=== PATIENT | male | born 1955 | race Caucasian/White ===

== ENCOUNTER 2017-04-30 09:30 | Emergency (ER) | payer OTHER ==
[2017-04-30 09:41] VITALS: BP 131/97; PULSE 61; TEMP 98.9; BMI 33.6
[2017-04-30] MEDS: DIPHTH,PERTUSS(ACELL),TET 0.5 ML DISP.SYRIN IM ONE ×2 (10:03→10:12)
[2017-04-30] MEDS ORDERED: DIPHTH,PERTUSS(ACELL),TET 0.5 ML DISP.SYRIN IM ONE (10:07)
--- NOTE | 2017-04-30 10:08 | PDOC ---
History of Present Illness - General Chief Complaint: Laceration Stated Complaint: cut my hand Time Seen by Provider: 04/30/17 10:05 - History of Present Illness Initial Comments: 04/30/17 10:08 Chief complaint: Laceration History of present illness: Patient dropped a picture frame on his right thumb, sustaining a laceration. There was no broken glass. There was no other loose material that could've yielded a foreign body. Review of systems: Denies distal numbness tingling or pain. Denies limited motion. Sustaining an abrasion on the other thumb as well. Past medical history: Elevated cholesterol, hypertension Medications: As indicated Social/family history reviewed and noncontributory. Last tetanus was greater than 10 years ago Physical exam: Alert and oriented well-developed well-nourished no acute distress cheerful and cooperative Afebrile, vital signs stable Left thumb reveals a superficial abrasion over the dorsum of the thumb, IP joint. Full range of motion against resistance. No distal numbness tingling or pain. Capillary refill intact Right thumb reveals a superficial laceration over the dorsum of the proximal phalanx. Full range of motion and strength against resistance. No distal numbness of the digital nerves with light touch or pinprick. Good capillary refill. Impression: Superficial laceration Plan: Further examination and repair Past History - Past Medical History Allergies/Adverse Reactions: Allergies Allergy/AdvReac Type Severity Reaction Status Date / Time No Known Allergies Allergy Verified 11/04/15 14:59 Home Medications: Ambulatory Orders Aspirin Coated [Ecotrin -] 81 mg PO DAILY tablet.ec 11/06/15 Atorvastatin Ca [Lipitor] 20 mg PO HS #30 tablet 11/06/15 Nebivolol [Bystolic -] 2.5 mg PO DAILY #30 tab 11/06/15 COPD: No HTN: Yes Hypercholesterolemia: Yes - Suicide/Smoking/Psychosocial Hx Smoking History: Never smoked Cigars Per Day: 1 Hx Alcohol Use: No Drug/Substance Use Hx: No Substance Use Type: Alcohol *Physical Exam - Vital Signs Last Vital Signs Temp Pulse Resp BP Pulse Ox 98.9 F 61 18 131/97 97 04/30/17 09:30 04/30/17 09:30 04/30/17 09:30 04/30/17 09:30 04/30/17 09:30 ED Treatment Course - Medications Given in the ED: ED Medications Discontinued Medications Generic Name Dose Route Start Last Admin Trade Name Hosea PRN Reason Stop Dose Admin Diphtheria/Tetanus/Acell Pertussis 0.5 ml 04/30/17 10:03 04/30/17 10:03 Boostrix - IM 04/30/17 10:04 0.5 ml NOW ONE Administration Medical Decision Making - Medical Decision Making 04/30/17 10:12 Procedure note: Repair of laceration Wound was thoroughly scrubbed with normal saline and explored. It was superficial, involving only the epidermis. There was no deep tissue exposed and there were no punctures. There was no foreign body visualized or palpated. Bacitracin and Steri-Strips were applied with good edge approximation. Tube gauze was used for protection and partial immobilization. Wound care instructions, Boostrix, were given. Advised to maintain dressing for 3 days, return if there is any sign of infection or bleeding, otherwise continue to keep dressed and covered for 7-10 days. Fully ambulatory and in no pain or other distress upon discharge to follow-up as directed *DC/Admit/Observation/Transfer Diagnosis at time of Disposition: Laceration of finger Qualifiers: Encounter type: initial encounter Finger: thumb Damage to nail status: without damage Foreign body presence: without foreign body Laterality: right Qualified Code(s): S61.011A - Laceration without foreign body of right thumb without damage to nail, initial encounter - Discharge Dispostion Disposition: HOME Condition at time of disposition: Improved Admit: No - Referrals Referrals: Latricia Adkins MD [Primary Care Provider] - - Patient Instructions Printed Discharge Instructions: DI for Laceration Repair Steri-Strips Additional Instructions: Keep clean and absolutely dry. Leave bandage in place for 3 days. Then remove, inspect the cut. If there is no sign of infection, continue to dress with antibiotic ointment and a Band-Aid. If there is sign of infection, return to the emergency room. - Post Discharge Activity
== END 2017-04-30 10:12 | disposition home or self-care (01) ==
LOC: FER 09:30
PROC: 3E0234Z Introduction of Serum, Toxoid and Vaccine into Muscle, Percutaneous Approach (ICD-10-PCS; principal; 2017-04-30)
DX: S61.011A Laceration without foreign body of right thumb without damage to nail, initial encounter (principal); I10 Essential (primary) hypertension; E78.00 Pure hypercholesterolemia, unspecified; W20.8XXA Other cause of strike by thrown, projected or falling object, initial encounter; Y93.89 Activity, other specified; Y92.9 Unspecified place or not applicable
CPT/HCPCS: 90715; 99282-25

== ENCOUNTER 2018-07-04 07:33 | Day surgery (SDC) | payer OTHER ==
[2018-07-01 11:03] VITALS: BMI 36.1
[2018-07-04 10:53] VITALS: BP 129/76; PULSE 72; TEMP 97
--- NOTE | 2018-07-05 14:55 | PATH ---
Surgical Pathology Report Patient Name: MICHAEL BUSCH [facility]. Rec. #: [id number] /Age/Gender: 1955 (Age: 63) / M Account: [id number] Location: [facility]ENDOSCOPY Taken: 07/04/2018 Received: 07/04/2018 Reported: 07/05/2018 Physicians: Moise Lehman M.D. Specimen(s) Received A: 2ND PORTION DUODENUM AND BULB BIOPSY B: 2ND PORTION DUODENUM POLYP BIOPSY C: ANTRUM AND BODY BIOPSY D: PROXIMAL TRANSVERSE COLON POLYP BIOPSY Clinical History Abdominal pain, abnormal CT scan, family history of colon cancer, screening colonoscopy Postoperative diagnosis: Duodenal polyp, colon polyp, diverticulosis Final Diagnosis A. SECOND PORTION DUODENUM AND BULB, BIOPSY: DUODENAL MUCOSA WITH MILD CHRONIC DUODENITIS. B.SECOND PORTION DUODENUM, POLYP, BIOPSY: POLYPOID DUODENAL MUCOSA WITH MODERATE CHRONIC DUODENITIS AND CARSON'S GLAND HYPERPLASIA. C. BODY AND ANTRUM, BIOPSY: GASTRIC ANTRAL AND BODY MUCOSA WITH MILD CHRONIC GASTRITIS. IMMUNOHISTOCHEMICAL STAIN FOR H. PYLORI IS NEGATIVE. D. PROXIMAL TRANSVERSE COLON, POLYP, BIOPSY: TUBULAR ADENOMA. Electronically Signed Jennifer Muller M.D. Gross Description A. Received in formalin, labeled "second portion of duodenum and bulb biopsy" are 4 crockett, irregular portions of soft tissue ranging from 0.2-0.4 cm. in greatest dimension. The specimens are submitted in toto in one cassette. B. Received in formalin, labeled "second portion of duodenal polyp biopsy" are 2 crockett, irregular portions of soft tissue measuring 0.4 and 0.5 cm. in greatest dimension. The specimens are submitted in toto in one cassette. C. Received in formalin, labeled "body and antrum" are 2 crockett, irregular portions of soft tissue averaging 0.3 cm. in greatest dimension. The specimens are submitted in toto in one cassette. D. Received in formalin, labeled "proximal transverse colon polyp" are 2 crockett, irregular portions of soft tissue measuring 0.3 and 0.5 cm. in greatest dimension. The specimens are submitted in toto in one cassette. /07/04/2018 saudi07/04/2018
== END 2018-07-04 10:54 | disposition home or self-care (01) ==
LOC: JASU-ENDO 07:33
PROVIDERS: ATTEND Internal Medicine Gastroenterology
PROC: 0DB98ZX Excision of Duodenum, Via Natural or Artificial Opening Endoscopic, Diagnostic (ICD-10-PCS; 2018-07-04)
PROC: 0DB68ZX Excision of Stomach, Via Natural or Artificial Opening Endoscopic, Diagnostic (ICD-10-PCS; 2018-07-04)
PROC: 0DBL8ZX Excision of Transverse Colon, Via Natural or Artificial Opening Endoscopic, Diagnostic (ICD-10-PCS; principal; 2018-07-04 08:30)
DX: Z12.11 Encounter for screening for malignant neoplasm of colon (principal); Z80.0 Family history of malignant neoplasm of digestive organs; D12.3 Benign neoplasm of transverse colon; K64.8 Other hemorrhoids; K57.30 Diverticulosis of large intestine without perforation or abscess without bleeding; K31.7 Polyp of stomach and duodenum
CPT/HCPCS: 88305-TC; 88342-TC

== ENCOUNTER 2019-07-04 18:11 | Emergency (ER) | payer OTHER, MEDICARE ==
--- NOTE | 2019-07-04 18:26 | PDOC ---
History of Present Illness - General Stated Complaint: CYST ON BACK Time Seen by Provider: 07/04/19 18:15 - History of Present Illness Initial Comments: 07/04/19 18:39 Mr. Weston is a 64 yo male w/ pmh of HLD, afib, on brilinta who presents for evaluation of reported "cyst" on back. Patient reports he believes he previously had a small cyst in the center of his upper back, however starting around Wednesday last week it became blackened and painful. Patient reports it "popped" today with a significant amount of blood and material noted. Patient presented to residential direct support professional who recommended he proceed to ER for further care. Patient denies any systemic symptoms at this time and reports pain has improved following cyst popping. The patient denies chest pain, shortness of breath, headache and dizziness. Denies fever, chills, nausea, vomit, diarrhea and constipation. Denies dysuria, frequency, urgency and hematuria. Past History - Past Medical History Allergies/Adverse Reactions: Allergies Allergy/AdvReac Type Severity Reaction Status Date / Time No Known Allergies Allergy Verified 07/04/19 18:31 Home Medications: Ambulatory Orders Aspirin Coated [Ecotrin -] 81 mg PO DAILY tablet.ec 11/06/15 Atorvastatin Ca [Lipitor] 20 mg PO HS #30 tablet 11/06/15 Nebivolol [Bystolic -] 2.5 mg PO DAILY #30 tab 11/06/15 Ascorbic Acid [Vitamin C] 1,000 mg PO DAILY 07/04/18 Cancer: Yes (MELANOMA) Cardiac Disorders: (CARDIAC CATH 2016-NORMAL) COPD: No HTN: Yes Hypercholesterolemia: Yes - Psycho Social/Smoking Cessation Hx Smoking History: Never smoked Cigars Per Day: 1 Hx Alcohol Use: Yes (OCCASIONAL) Drug/Substance Use Hx: No Substance Use Type: Alcohol Hx Substance Use Treatment: No Review of Systems - Review of Systems Comments:: 07/04/19 18:42 GENERAL/CONSTITUTIONAL: No fever or chills. No weakness. HEAD, EYES, EARS, NOSE AND THROAT: No change in vision. No ear pain or discharge. No sore throat. CARDIOVASCULAR: No chest pain or shortness of breath RESPIRATORY: No cough, wheezing, or hemoptysis. GASTROINTESTINAL: No nausea, vomiting, diarrhea or constipation. GENITOURINARY: No dysuria, frequency, or change in urination. MUSCULOSKELETAL: +Back symptoms/pain as described. No joint or muscle swelling or pain. SKIN: No rash NEUROLOGIC: No headache, vertigo, loss of consciousness, or change in strength/ sensation. ENDOCRINE: No increased thirst. No abnormal weight change HEMATOLOGIC/LYMPHATIC: No anemia, easy bleeding, or history of blood clots. ALLERGIC/IMMUNOLOGIC: No hives or skin allergy. *Physical Exam - Physical Exam 07/04/19 18:42 GENERAL: Awake, alert, and fully oriented, in no acute distress HEAD: No signs of trauma, normocephalic, atraumatic EYES: PERRLA, EOMI, sclera anicteric, conjunctiva clear ENT: Auricles normal inspection, hearing grossly normal, nares patent, oropharynx clear without exudates. Moist mucosa NECK: Normal ROM, supple, no lymphadenopathy, JVD, or masses LUNGS: No distress, speaks full sentences, clear to auscultation bilaterally HEART: Regular rate and rhythm, normal S1 and S2, no murmurs, rubs or gallops, peripheral pulses normal and equal bilaterally. ABDOMEN: Soft, nontender, normoactive bowel sounds. No guarding, no rebound. No masses EXTREMITIES: +5cm x 4 cm area noted to mid upper back c/w infected dermoid cyst. Otherwise normal inspection, normal range of motion, no edema. No clubbing or cyanosis. NEUROLOGICAL: Cranial nerves II through XII grossly intact. Normal speech, normal gait, no focal sensorimotor deficits SKIN: Warm, Dry, normal turgor, no rashes or lesions noted. Medical Decision Making - Medical Decision Making 07/04/19 18:43 Mr. Weston is a 64 yo male w/ pmh as described who presents for evaluation of symptoms as described c/w infected cyst. US evaluation revealed 0.5cm to 1.5cm depth area of edema w/out discrete drainable collection. Patient denies pain medication at this time. Patient has arranged plastics evaluation who will evaluate; will defer to expertise however suspect ABX treatment only warranted intervention at this time. 07/04/19 18:50 Patient signed out to Dr. Whelan for further evaluation. Discharge - Discharge Information Problems reviewed: Yes Clinical Impression/Diagnosis: Infected epidermoid cyst - Follow up/Referral Referrals: Latricia Adkins MD [Primary Care Provider] - - Patient Discharge Instructions Patient Printed Discharge Instructions: DI for Wound Infection - Post Discharge Activity
[2019-07-04 18:28] VITALS: BP 117/77; PULSE 72; TEMP 98.1; BMI 33.9
--- NOTE | 2019-07-04 18:49 | PDOC ---
Documentation entered by Xiomara Patel SCRIBE, acting as scribe for Lexi Whelan MD. Lexi Whelan MD: This documentation has been prepared by the jordanaibmary, Xiomara Patel SCRIBE, under my direction and personally reviewed by me in its entirety. I confirm that the documentation accurately reflects all work, treatment, procedures, and medical decision making performed by me. Attending Attestation - Resident Resident Name: LloydvandaHank - ED Attending Attestation I have performed the following: I have examined & evaluated the patient, The case was reviewed & discussed with the resident, I agree w/resident's findings & plan, Exceptions are as noted - HPI HPI: 07/04/19 18:54 64-year-old male presents with an abscess on his upper back that he states has been draining 07/04/19 18:57 The patient is a 64-year-old male with a past medical history significant for HLD and Afib (on brilinta) who presents to the emergency department with a cyst on back. The patient reports he noted a cyst on his back, which darkened in color on Wednesday and became painful. The patient reports earlier today, the wound popped and started draining. The patient reports following up with Patient Centered Care Specialist, who referred the patient to the ER for further management. Denies fever or chills. - Physicial Exam PE: 07/04/19 18:48 There is a 5 cm x 4 cm mid upper back infected cyst that has been draining neuro pt axox3,ambulatory - Medical Decision Making 07/04/19 18:56 The patient states that he has already contacted the plastic surgeon Dr. Bang Aocsta and the plan is that the plastic surgeon will meet him in the emergency department 07/04/19 18:[address] Abhi Whaley. 07/04/19 20:42 Dr Abhi Whaley came in and did an incision and drainage bedside RX keflex and Iodoform gauze pt started on keflex as per Dr Whaley recommendation and he was discharged home he will follow up with Dr Whaley
[2019-07-04] MEDS ORDERED: LIDOCAINE HCL 2% (20ML MULTI-DOSE VIAL) ONE (19:30)
[2019-07-04] MEDS ORDERED: CEPHALEXIN MONOHYDRATE 500 MG CAPSULE (UD) PO STA (19:56)
--- NOTE | 2019-07-04 19:59 | PDOC ---
*Physical Exam - Vital Signs Last Vital Signs Temp Pulse Resp BP Pulse Ox 98.1 F 72 12 117/77 97 07/04/19 18:25 07/04/19 18:25 07/04/19 18:25 07/04/19 18:25 07/04/19 18:25 Discharge - Discharge Information Problems reviewed: Yes Clinical Impression/Diagnosis: Infected epidermoid cyst Condition: Stable Disposition: HOME - Admission No - Additional Discharge Information Prescriptions: Cephalexin Monohydrate [Keflex -] 500 mg PO Q8H #21 capsule Iodoform [Curity Iodoform] 1 each TP BID #14 bandage - Follow up/Referral Referrals: Latricia Adkins MD [Primary Care Provider] - Abhi Whaley MD [Staff Physician] - - Patient Discharge Instructions Patient Printed Discharge Instructions: DI for Wound Infection Additional Instructions: please followup with Dr Whaley Please take your antibiotics as prescribed Change the packing twice daily - Post Discharge Activity
[2019-07-04] MEDS ORDERED: CEPHALEXIN MONOHYDRATE 500 MG CAPSULE (UD) ONE (20:03)
--- NOTE | 2019-07-05 20:50 | CONS ---
OPERATIVE AND CONSULTATION REPORT DATE OF CONSULTATION: DATE OF DICTATION: 07/04/2019 DATE OF OPERATION: 07/04/2019 PROCEDURE: Incision and drainage of back cutaneous abscess. ATTENDING SURGEON: Jose Carlos Vega MD [facility] HISTORY PROFESSOR: There were no assistants. Patient is seen at the request of referring physician, Dr. Whelan. Please see report by Dr. Whelan. History is that this is a 64-year-old male who developed a large, fluctuant, erythematous, tender, hot abscess on the back. He was brought in to the [facility] Room for evaluation and treatment. PAST MEDICAL AND SURGICAL HISTORY: Noncontributory. REVIEW OF SYSTEMS: Negative for embolism, coagulopathy, recent fever, infection, change in mental status, chest pain, shortness of breath. PHYSICAL EXAMINATION: Head and Neck: Atraumatic. Abdomen: Soft, nontender. Extremities: Warm, well perfused. Skin: There is a 4 x 4 cm abscess, as described, on the patient's back. The patient is counseled on all risks, benefits, alternatives to incision and drainage of the abscess, understands, agrees to proceed. PROCEDURE: The area is given a field block using 10 mL of 1% and 1:100,000 epinephrine, after which incision is made over the most fluctuant portion. A small elliptical area of skin is removed. The contents of the abscess and cyst are entirely expressed. The wound is copiously irrigated. It is packed with 1/4-inch Nu Gauze packing. Wound care instructions given. The patient is started on Duricef, is to follow up with Dr. Vega in 1 week. JOSE CARLOS VEGA M.D. [id number]
== END 2019-07-04 20:07 | disposition home or self-care (01) ==
LOC: JER 18:11
DX: L72.0 Epidermal cyst (principal); I25.10 Atherosclerotic heart disease of native coronary artery without angina pectoris; I10 Essential (primary) hypertension; I48.91 Unspecified atrial fibrillation; Z79.02 Long term (current) use of antithrombotics/antiplatelets; Z98.61 Coronary angioplasty status
CPT/HCPCS: 99283-25

== ENCOUNTER 2021-02-14 04:11 | Day surgery (SDC) | payer OTHER, MEDICARE ==
[2021-02-12 14:46] VITALS: BMI 33.9
[2021-02-14 08:54] VITALS: TEMP 98
[2021-02-14 09:20] VITALS: PULSE 68
[2021-02-14 09:44] VITALS: BP 131/83
== END 2021-02-14 09:44 | disposition home or self-care (01) ==
LOC: JASU-ENDO 04:11
PROVIDERS: ATTEND Internal Medicine Gastroenterology
PROC: 0DB98ZX Excision of Duodenum, Via Natural or Artificial Opening Endoscopic, Diagnostic (ICD-10-PCS; 2021-02-14)
PROC: 0DB78ZX Excision of Stomach, Pylorus, Via Natural or Artificial Opening Endoscopic, Diagnostic (ICD-10-PCS; 2021-02-14)
PROC: 0DB38ZX Excision of Lower Esophagus, Via Natural or Artificial Opening Endoscopic, Diagnostic (ICD-10-PCS; 2021-02-14)
PROC: 0DJD8ZZ Inspection of Lower Intestinal Tract, Via Natural or Artificial Opening Endoscopic (ICD-10-PCS; principal; 2021-02-14 08:00)
DX: Z12.11 Encounter for screening for malignant neoplasm of colon (principal); K31.7 Polyp of stomach and duodenum; K21.00 Gastro-esophageal reflux disease with esophagitis, without bleeding; K29.80 Duodenitis without bleeding; K29.40 Chronic atrophic gastritis without bleeding; Z85.72 Personal history of non-Hodgkin lymphomas; K57.30 Diverticulosis of large intestine without perforation or abscess without bleeding; Z86.010 Personal history of colon polyps; Z80.0 Family history of malignant neoplasm of digestive organs
CPT/HCPCS: 43239; G0105; 88305-TC; 88342-TC

== ENCOUNTER 2021-10-21 08:58 | Emergency (ER) | payer OTHER, MEDICARE ==
[2021-10-21 09:37] VITALS: BP 114/74; PULSE 75; TEMP 97.4; BMI 34.4
[2021-10-21] MEDS ORDERED: BEBTELOVIMAB (EUA) 175 MG/2 ML VIAL IVPUSH ONE (10:45)
== END 2021-10-21 11:45 | disposition home or self-care (01) ==
LOC: JER 08:58
DX: U07.1 COVID-19 (principal)
CPT/HCPCS: 99284-25; M0222; Q0222

== ENCOUNTER 2023-05-27 08:00 | Inpatient (IN) | payer OTHER, MEDICARE ==
[2023-05-27] MEDS ORDERED: SODIUM CHLORIDE 0.9% 500 ML INFUS.BAG IV ONE (08:15)
[2023-05-27] MEDS ORDERED: ONDANSETRON 4 MG/2 ML VIAL IVPUSH ONE (08:16)
[2023-05-27] MEDS ORDERED: KETOROLAC TROMETHAMINE 15 MG/ML VIAL IVPUSH ONE (08:16)
[2023-05-27] MEDS ORDERED: KETOROLAC TROMETHAMINE 15 MG/ML VIAL ONE (08:30)
[2023-05-27] MEDS ORDERED: ONDANSETRON 4 MG/2 ML VIAL ONE (08:30)
[2023-05-27 09:12] LABS: HEMATOCRIT 38.6 % (35.4-49); HEMOGLOBIN 12.1 G/dL (11.7-16.9); MCH 21.4 pg (25.7-33.7); MCHC 31.3 g/dl (32.0-35.9); MEAN CELL VOLUME 68.4 fl (80-96); MEAN PLT VOLUME 9.5 fl (7.5-11.1); PLATELET COUNT 212.4 10^3/uL (134-434); RBC 5.64 10^6/uL (4.00-5.60); RDW 18.9 % (11.9-15.9); WHITE BLOOD COUNT 12.2 10^3/uL (4.0-10.8)
[2023-05-27] MEDS ORDERED: CEFTRIAXONE 1 GM in DEXTROSE 5%-WATER - 100 ML IVPB ONE (09:26)
[2023-05-27] MEDS ORDERED: cefTRIAXone SODIUM 1 GM VIAL ONE (09:29)
[2023-05-27 09:36] LABS: ALBUMIN 4.4 g/dl (3.4-5.0); BILIRUBIN,TOTAL 1.2 mg/dl (0.2-1); CALCIUM 9.2 mg/dl (8.5-10.1); POTASSIUM 3.9 mmol/L (3.5-5.1); TOT PROT 6.2 g/dl (6.4-8.2)
[2023-05-27 10:05] LABS: PLATELET ESTIMATE ADEQUATE
[2023-05-27] MEDS ORDERED: ASPIRIN 81 MG CHEWABLE TABLETS ONE (10:37)
[2023-05-27] MEDS ORDERED: FAMOTIDINE 20 MG TABLET ONE (10:37)
[2023-05-27 10:46] LABS: N-TERMINAL BNP 244.8 pg/ml (5-125)
[2023-05-27] MEDS: FAMOTIDINE 20 MG TABLET PO SCH (10:49)
[2023-05-27] MEDS: ASPIRIN COATED 81 MG TABLET.EC PO SCH (10:49)
[2023-05-27] MEDS ORDERED: REMDESIVIR 200 MG in SODIUM CHLORIDE 250 ML IVPB ONE (12:17)
[2023-05-27] MEDS ORDERED: REMDESIVIR 200 MG in SODIUM CHLORIDE 210 ML IVPB ONE (12:35)
[2023-05-27 13:49] VITALS: BMI 35.5
[2023-05-27] MEDS: ACETAMINOPHEN 325 MG TABLET (FP) PO PRN ×2 (17:52→22:08)
[2023-05-27] MEDS: ATORVASTATIN CA 20 MG TABLET (FP) PO SCH (22:08)
[2023-05-27] MEDS: MELATONIN 5 MG TABLETS PO SCH (22:08)
[2023-05-27] MEDS: ALBUTEROL SO4 HFA INHALER IH PRN (23:35)
[2023-05-28] MEDS: ACETAMINOPHEN 325 MG TABLET (FP) PO PRN ×2 (08:47→14:05)
[2023-05-28 09:00] LABS: BILIRUBIN,TOTAL 0.8 mg/dl (0.2-1); CREATININE 0.8 mg/dl (0.6-1.3); POTASSIUM 4.1 mmol/L (3.5-5.1); TOT PROT 5.7 g/dl (6.4-8.2)
[2023-05-28] MEDS: NEBIVOLOL 2.5 MG TABLET (FP) PO SCH ×2 (09:40→09:53)
[2023-05-28] MEDS: DEXAMETHASONE SOD PHOSPHATE 10 MG/1 ML VIAL IVPUSH SCH (09:40)
[2023-05-28] MEDS: CEFTRIAXONE 1 GM in DEXTROSE 5%-WATER - 50 ML IVPB SCH (09:40)
[2023-05-28] MEDS: ASPIRIN COATED 81 MG TABLET.EC PO SCH ×2 (09:40→09:53)
[2023-05-28] MEDS: FAMOTIDINE 20 MG TABLET PO SCH ×2 (09:40→09:53)
[2023-05-28] MEDS: ALBUTEROL SO4 HFA INHALER IH PRN (09:41)
[2023-05-28 11:31] LABS: BASO % 0.1 % (0-2.0); EOS % 0.1 % (0-4.5); HEMATOCRIT 36.6 % (35.4-49); HEMOGLOBIN 11.4 GM/dL (11.7-16.9); LYMPH % 5.6 % (8-40); MCH 20.8 pg (25.7-33.7); MCHC 31.2 g/dl (32.0-35.9); MEAN CELL VOLUME 66.5 fl (80-96); MEAN PLT VOLUME 9.6 fl (7.5-11.1); MONO % 10.9 % (3.8-10.2); NEUT % 83.3 % (42.8-82.8); PLATELET COUNT 207 10^3/uL (134-434); RDW 15.5 % (11.9-15.9); WHITE BLOOD COUNT 14.1 K/mm3 (4.0-10.0)
[2023-05-28 11:50] LABS: ANISOCYTOSIS 3+; MACROCYTOSIS 0
[2023-05-28] MEDS: REMDESIVIR 100 MG in SODIUM CHLORIDE 230 ML IVPB SCH (15:02)
[2023-05-28] MEDS: MELATONIN 5 MG TABLETS PO SCH (21:48)
[2023-05-28] MEDS: ATORVASTATIN CA 20 MG TABLET (FP) PO SCH (21:48)
[2023-05-29] MEDS: DEXAMETHASONE SOD PHOSPHATE 10 MG/1 ML VIAL IVPUSH SCH (09:57)
[2023-05-29] MEDS: ASPIRIN COATED 81 MG TABLET.EC PO SCH (09:57)
[2023-05-29] MEDS: NEBIVOLOL 2.5 MG TABLET (FP) PO SCH (09:57)
[2023-05-29] MEDS: FAMOTIDINE 20 MG TABLET PO SCH (09:57)
[2023-05-29] MEDS: CEFTRIAXONE 1 GM in DEXTROSE 5%-WATER - 50 ML IVPB SCH (09:58)
[2023-05-29] MEDS: REMDESIVIR 100 MG in SODIUM CHLORIDE 230 ML IVPB SCH (15:30)
[2023-05-29] MEDS: ATORVASTATIN CA 20 MG TABLET (FP) PO SCH (21:20)
[2023-05-29] MEDS: MELATONIN 5 MG TABLETS PO SCH (21:20)
[2023-05-30 05:49] VITALS: PULSE 70; RESP 16
[2023-05-30 08:59] LABS: HEMATOCRIT 38.5 % (35.4-49); HEMOGLOBIN 11.9 G/dL (11.7-16.9); MCH 21.1 pg (25.7-33.7); MEAN PLT VOLUME 10.2 fl (7.5-11.1); PLATELET COUNT 227.2 10^3/uL (134-434); RBC 5.66 10^6/uL (4.00-5.60); RDW 18.3 % (11.9-15.9); WHITE BLOOD COUNT 9.6 10^3/uL (4.0-10.8)
[2023-05-30 09:34] VITALS: BP 131/70; TEMP 97.7
[2023-05-30] MEDS: NEBIVOLOL 2.5 MG TABLET (FP) PO SCH (10:13)
[2023-05-30] MEDS: CEFTRIAXONE 1 GM in DEXTROSE 5%-WATER - 50 ML IVPB SCH (10:13)
[2023-05-30] MEDS: ASPIRIN COATED 81 MG TABLET.EC PO SCH (10:13)
[2023-05-30] MEDS: DEXAMETHASONE SOD PHOSPHATE 10 MG/1 ML VIAL IVPUSH SCH (10:13)
[2023-05-30] MEDS: FAMOTIDINE 20 MG TABLET PO SCH (10:14)
[2023-05-30 10:34] LABS: CALCIUM 9.1 mg/dl (8.5-10.1); CREATININE 0.7 mg/dl (0.6-1.3); POTASSIUM 4.2 mmol/L (3.5-5.1)
== END 2023-05-30 13:37 | disposition home or self-care (01) | DRG 177 ==
LOC: FER 08:00 → FM/S 11:23
PROVIDERS: ADMIT Internal Medicine; ATTEND Internal Medicine
PROC: XW033E5 Introduction of Remdesivir Anti-infective into Peripheral Vein, Percutaneous Approach, New Technology Group 5 (ICD-10-PCS; principal; 2023-05-27)
DX: U07.1 COVID-19 (principal); J12.82 Pneumonia due to coronavirus disease 2019; C83.10 Mantle cell lymphoma, unspecified site; I44.0 Atrioventricular block, first degree; I25.10 Atherosclerotic heart disease of native coronary artery without angina pectoris; E78.5 Hyperlipidemia, unspecified; I10 Essential (primary) hypertension
CPT/HCPCS: 0241U-QW; 36415; 71045-TC-FY; 71046-TC-FY; 80048; 80053; 83605; 83880; 84484; 85025; 85027; 86140; 87040; 87651; 87899; 93005; 99285-25; J0248; J1100